=== PATIENT | female | born 1950 | race Caucasian/White ===

== ENCOUNTER → 2025-01-22 11:24 | Outpatient (BNVA) | payer MEDICARE, OTHER, SELFPAY | PROVIDERS: Visit Provider Student in an Organized Health Care Education/Training Program | DX: Z12.11 Encounter for screening for malignant neoplasm of colon (principal) | CPT/HCPCS: 99024; 99204 ==

== ENCOUNTER 2025-02-03 10:27 | Outpatient (CLI) | payer MEDICARE, OTHER, SELFPAY ==
--- NOTE | 2025-02-03 10:32 | MM_ITS ---
WS: [id number] BILATERAL 3D TOMOSYNTHESIS DIGITAL SCREENING MAMMOGRAPHY WITH CAD CLINICAL INFORMATION: SCREENING HISTORY: Screening mammogram. No current complaints. COMPARISON: None available TECHNIQUE: Bilateral CC and MLO views. FINDINGS: History of breast reduction Scattered fibroglandular densities bilaterally. No suspicious focal mass, asymmetry, calcifications, or architectural distortion. No evidence of malignancy. Bilateral changes of breast reduction. Dystrophic calcifications LEFT breast with fat necrosis likely due to breast reduction. Lucent centered calcification RIGHT breast. MM/MM [facility] tomosynthesis 71055 IMPRESSION: DENSITY: There are scattered areas of fibroglandular density. BI-RADS: 2 - Benign. FOLLOW UP: 1 Year Follow-up Recommend return to annual screening mammography.
== END 2025-02-03 10:28 | disposition home or self-care (01) ==
LOC: RAD 10:28
PROVIDERS: PCP Nurse Practitioner Family; Visit Provider Nurse Practitioner Family
DX: Z12.31 Encounter for screening mammogram for malignant neoplasm of breast (principal)
CPT/HCPCS: 77063; 77067

== ENCOUNTER 2025-03-03 08:42 | Day surgery (SDC) | payer MEDICARE, OTHER, SELFPAY ==
[2025-03-03 09:00] VITALS: BMI 32.4
[2025-03-03 09:04] VITALS: BP 125/85; PULSE 83; RESP 20; TEMP 36.1; O2SAT 96
--- NOTE | 2025-03-03 09:25 | ANES.PREANE2 ---
Pre-Anesthetic Assessment Height/Weight: Height 1.63 m Weight 85.729 kg Temp Pulse Resp BP Pulse Ox O2 Del Method 97 F L 83 20 H 125/85 96 Room Air 03/03/25 09:04 03/03/25 09:04 03/03/25 09:04 03/03/25 09:04 03/03/25 09:04 03/03/25 09:04 Preop Diagnosis: Screening Operation Date: 03/03/25 10:30 Proposed Procedures p Colonoscopy 14572 G0105 Z12.11(Not Applicable) - Chris Rich MD Was Beta Kaye taken within 24 hours: N/A Was Clonidine taken within 24 hours: N/A Last intake: Intake Last Liquid Date 03/02/25 Last Liquid Time 20:00 Last Solid Date 03/01/25 Last Solid Time 18:00 Social No alcohol and No tobacco Exam alert, oriented x 3, clear to auscultation bilaterally and regular rate & rhythm Airway Submandibular: within normal limits Cervical ROM: within normal limits Mallampati: Class II Dentition: full History/ROS No significant history except as noted and No significant complaints Pulmonary None reported CV/HEM Hypertension None reported Hepatic None reported GI None reported Metabolic None reported Musc/skel Osteoarthritis/DJD Neuropsych None reported Anesthetic Plan ASA status: 2 Anesthesia: Anesthesia Evaluation and MAC Risk of > 500 ml blood loss (7ml/kg in children): No Medications/Allergies Home Medications ?Medication ?Instructions ?Recorded ?Confirmed ?Last Taken ?Type cholecalciferol (vitamin D3) 50 50 mcg PO DAILY 01/22/25 03/03/25 03/02/25 History mcg (2,000 unit) capsule levothyroxine 50 mcg tablet 50 mcg PO QDAY 01/22/25 03/03/25 03/02/25 History lisinopril 10 1 tab PO QDAY 01/22/25 03/03/25 03/02/25 History mg-hydrochlorothiazide 12.5 mg tablet lovastatin 40 mg tablet 40 mg PO QDAY 01/22/25 03/03/25 03/02/25 History potassium chloride 10 mEq 10 meq PO QDAY 01/22/25 03/03/25 03/02/25 History capsule,extended release sumatriptan succinate 100 mg tablet 100 mg PO ONCE PRN Headache 01/22/25 03/03/25 1 Month Ago History ~01/31/25 venlafaxine 150 mg 150 mg PO QAM 01/22/25 03/03/25 03/02/25 History capsule,extended release 24 hr zinc gluconate 50 mg tablet 50 mg PO DAILY 01/22/25 03/03/25 03/02/25 History Allergies Allergy/AdvReac Type Severity Reaction Status Date / Time No Known Allergies Allergy Verified 03/03/25 09:01 Current Medications Generic Name Dose Route Start Last Admin Trade Name Freq PRN Reason Stop Dose Admin Sodium Chloride 1,000 mls @ 15 mls/hr 03/03/25 08:50 03/03/25 09:13 Sodium Chloride 0.9% IV 03/04/25 08:49 15 mls/hr .Q24H PRN Administration COLONOSCOPY FLUIDS PFSH Anesthesia Family History (Updated 01/22/25 @ 11:31 by DEEPAK Mancuso) Father Migraines Diabetes Mother Hypertension Thyroid disease Social History Smoking and tobacco/nicotine status: never used tobacco/nicotine
--- NOTE | 2025-03-03 09:39 | W.PM.OPSFHP ---
Same Day Surgery H&P Indication for Procedure/HPI DATE OF PROCEDURE: March 03, 2025 CHIEF COMPLAINT/INDICATIONFOR SURGICAL PROCEDURE: screening colonoscopy PREOP DIAGNOSIS: screening colonoscopy PLANNED PROCEDURE: Operation Date: 03/03/25 10:30 Proposed Procedures p Colonoscopy 10754 G0105 Z12.11(Not Applicable) - Chris Rich MD Medications/Allergies* Home Medications ?Medication ?Instructions ?Recorded ?Confirmed ?Type cholecalciferol (vitamin D3) 50 50 mcg PO DAILY 01/22/25 03/03/25 History mcg (2,000 unit) capsule levothyroxine 50 mcg tablet 50 mcg PO QDAY 01/22/25 03/03/25 History lisinopril 10 1 tab PO QDAY 01/22/25 03/03/25 History mg-hydrochlorothiazide 12.5 mg tablet lovastatin 40 mg tablet 40 mg PO QDAY 01/22/25 03/03/25 History potassium chloride 10 mEq 10 meq PO QDAY 01/22/25 03/03/25 History capsule,extended release sumatriptan succinate 100 mg tablet 100 mg PO ONCE PRN Headache 01/22/25 03/03/25 History venlafaxine 150 mg 150 mg PO QAM 01/22/25 03/03/25 History capsule,extended release 24 hr zinc gluconate 50 mg tablet 50 mg PO DAILY 01/22/25 03/03/25 History Allergies/Adverse Reactions Allergy/AdvReac Type Severity Reaction Status Date / Time No Known Allergies Allergy Verified 03/03/25 09:01 Current Medications: Generic Name Dose Route Start Last Admin Trade Name Freq PRN Reason Stop Dose Admin Sodium Chloride 1,000 mls @ 15 mls/hr 03/03/25 08:50 03/03/25 09:13 Sodium Chloride 0.9% IV 03/04/25 08:49 15 mls/hr .Q24H PRN Administration COLONOSCOPY FLUIDS Pertinent History/Comorbid Conditions* Family History (Updated 01/22/25 @ 11:31 by DEEPAK Mancuso) Diabetes Father Migraines Father Hypertension Mother Thyroid disease Mother Social History Smoking and tobacco/nicotine status: never used tobacco/nicotine Pertinent Exam Findings alert, oriented x 3, clear to auscultation bilaterally, regular rate & rhythm and procedure specific exam findings abdomen soft, nt, nd Recommendations Risks and benefits of procedure reviewed and Patient/family agree to proceed Surgery/Procedure today Coding Level of Care Code Acute Code for g Fwd
[2025-03-03 10:04] VITALS: BP 132/71; PULSE 82; RESP 20; TEMP 36.1; O2SAT 92
[2025-03-03 10:14] VITALS: BP 127/65; PULSE 68; RESP 18; TEMP 36.1; O2SAT 92
[2025-03-03 10:20] VITALS: BP 131/83; PULSE 69; RESP 18; O2SAT 96
--- NOTE | 2025-03-03 10:55 | ANE.PACU2 ---
Inpatient post-anesthesia follow up: Airway intact: Yes Vital signs: Temperature 97.0 F Pulse Rate 69 Respiratory Rate 18 Blood Pressure 131/83 Pulse Oximetry 96 Oxygen Delivery Me thod Room Air Oxygen Flow Rate 2 Fraction of Inspir ed Oxygen Hydration adequate: Yes Nausea and vomiting: No Pain level: 1 Mental status: Baseline
== END 2025-03-03 10:58 | disposition home or self-care (01) ==
PROVIDERS: PCP Nurse Practitioner Family; Visit Provider Student in an Organized Health Care Education/Training Program
PROC: 0DJD8ZZ Inspection of Lower Intestinal Tract, Via Natural or Artificial Opening Endoscopic (ICD-10-PCS; CPT 45378; principal; 2025-03-03 10:30)
DX: Z12.11 Encounter for screening for malignant neoplasm of colon (principal); K57.30 Diverticulosis of large intestine without perforation or abscess without bleeding; K62.1 Rectal polyp; I10 Essential (primary) hypertension
CPT/HCPCS: 45385; 88305; J2704; J7030

== ENCOUNTER → 2025-03-20 08:14 | Outpatient (BNVA) | payer MEDICARE, OTHER, SELFPAY | PROVIDERS: PCP Nurse Practitioner Family; Visit Provider Orthopaedic Surgery | DX: M17.11 Unilateral primary osteoarthritis, right knee (principal); M25.761 Osteophyte, right knee; G89.29 Other chronic pain | CPT/HCPCS: 73560; 73565; 99204 ==

== ENCOUNTER → 2025-03-23 08:51 | Outpatient (BNVA) | payer MEDICARE, OTHER, SELFPAY | PROVIDERS: PCP Nurse Practitioner Family; Visit Provider Student in an Organized Health Care Education/Training Program | DX: Z09 Encounter for follow-up examination after completed treatment for conditions other than malignant neoplasm (principal) | CPT/HCPCS: 99213 ==

== ENCOUNTER 2025-04-15 11:23 | Observation (INO) | payer MEDICARE, OTHER, SELFPAY ==
[2025-04-15] VITALS (29 sets, daily range): BP systolic 89–131; BP diastolic 61–108; PULSE 63–101; RESP 9–22; TEMP 36–37.1; O2SAT 91–100; BMI 31.4
--- NOTE | 2025-04-15 06:38 | W.PM.OPSUD ---
Surgery/Procedure H&P Update DATE OF PROCEDURE: April 15, 2025 DATE H&P PERFORMED: 03/20/25 H&P UPDATE INFORMATION: I have reviewed H&P completed within last 30 days, I have examined patient prior to procedure and No changes to prior documentation PREOP DIAGNOSIS: End-stage arthritis right knee PLANNED PROCEDURE: Operation Date: 04/15/25 07:00 Proposed Procedures p RIGHT Total Knee Arthroplasty 36372(Right) - Eyad Nicolas MD
--- NOTE | 2025-04-15 06:39 | ECG_ITS ---
[facility]: 2025-[facility]15 Pat Name: Kiley Arenas Department: Room: Gender: Female Supervisor Mill: : 1950 Requested By: Ernestina Fry Order Number: [id number] Chad MD: Dandy Vivar M.D. Measurements Intervals [place] Rate: 76 P: 42 RI: 161 QRS: -8 QRSD: 87 T: 47 QT: 385 QTc: 434 Interpretive Statements SINUS RHYTHM WITH OCCASIONAL ECTOPIC PREMATURE COMPLEXES No previous ECG available for comparison Electronically Signed On 04-15-2025 16:48:26 CDT by Dandy Vivar M.D. [email or web address]
[2025-04-15 06:48] LABS: Hematocrit 42.2 % (36-47); Hemoglobin 14.30 g/dL (11.27-16.99); Mean Corpuscular HGB Conc 33.9 g/dL (30-55); Mean Corpuscular Hemoglobin 30.5 pg (27-33); Mean Corpuscular Volume 90.0 fl (85-98); Nucleated Red Blood Cells % 0 %; Platelet Count 258 10^3/cmm (157-399); Red Blood Count 4.69 10^6/uL (3.85-5.65); White Blood Count 7.19 10^3/uL (3.29-11.43)
[2025-04-15 07:00] LABS: Anion Gap 18.4 (5-19); Blood Urea Nitrogen 15 mg/dL (8-23); Calcium 9.0 mg/dL (8.5-10.5); Carbon Dioxide 24 mmol/L (22-29); Chloride 102 mmol/L (98-107); Creatinine Clr Calc Pharmacy 67.7187; Glucose 102 mg/dL (65-115); Osmolality Calculated 293 mOsm/kg (285-295); Potassium 3.4 mmol/L (3.5-5.1); Sodium 141 mmol/L (136-145)
--- NOTE | 2025-04-15 07:12 | ANES.PREANE2 ---
Pre-Anesthetic Assessment Height/Weight: Height 1.65 m Weight 85.729 kg Temp Pulse Resp BP Pulse Ox O2 Del Method 96.8 F L 85 18 131/108 94 Room Air 04/15/25 06:23 04/15/25 06:23 04/15/25 06:23 04/15/25 06:23 04/15/25 06:23 04/15/25 06:23 Preop Diagnosis: End-stage arthritis right knee Operation Date: 04/15/25 07:00 Proposed Procedures p RIGHT Total Knee Arthroplasty 91369(Right) - Eyad Nicolas MD Familial anesthetic complications: None Was Beta Kaye taken within 24 hours: N/A Was Clonidine taken within 24 hours: N/A Last intake: Intake Last Liquid Date 04/14/25 Last Liquid Time 21:00 Last Solid Date 04/14/25 Last Solid Time 19:00 Social No alcohol and No tobacco Exam alert, oriented x 3, clear to auscultation bilaterally and regular rate & rhythm Airway Mallampati: Class I CV/HEM Hypertension Anesthetic Plan Anesthesia: Regional (specify below) Risk of > 500 ml blood loss (7ml/kg in children): No Medications/Allergies Home Medications ?Medication ?Instructions ?Recorded ?Confirmed ?Last Taken ?Type cholecalciferol (vitamin D3) 50 50 mcg PO DAILY 01/22/25 04/14/25 04/14/25 History mcg (2,000 unit) capsule levothyroxine 50 mcg tablet 50 mcg PO QDAY 01/22/25 04/15/25 04/15/25 History lisinopril 10 1 tab PO BEDTIME 01/22/25 04/14/25 04/14/25 History mg-hydrochlorothiazide 12.5 mg tablet lovastatin 40 mg tablet 40 mg PO BEDTIME 01/22/25 04/14/25 04/14/25 History potassium chloride 10 mEq 10 meq PO QDAY 01/22/25 04/14/25 04/14/25 History capsule,extended release sumatriptan succinate 100 mg tablet 100 mg PO ONCE PRN Headache 01/22/25 04/14/25 1 Month Ago History ~01/31/25 venlafaxine 150 mg 150 mg PO QAM 01/22/25 04/14/25 04/14/25 History capsule,extended release 24 hr zinc gluconate 50 mg tablet 50 mg PO DAILY 01/22/25 04/14/25 04/14/25 History Allergies Allergy/AdvReac Type Severity Reaction Status Date / Time No Known Allergies Allergy Verified 04/14/25 16:16 [facility] Anesthesia Family History Father Migraines Diabetes Mother Hypertension Thyroid disease Social History Smoking and tobacco/nicotine status: never used tobacco/nicotine Data Anesthesia 04/15/25 06:32 04/15/25 06:32 Short CBC 04/15/25 Range/Units 06:32 WBC 7.19 (3.29-11.43) 10^3/uL Hgb 14.30 (11.27-16.99) g/dL Hct 42.2 (36-47) % MCV 90.0 (85-98) fl Plt Count 258 (157-399) 10^3/cmm Neut % (Auto) 46.4 % Neut # (Auto) 3.34 (1.8-7.7) 10^3/uL BMP 04/15/25 06:32 Sodium 141 Potassium 3.4 L Chloride 102 Carbon Dioxide 24 BUN 15 Creatinine 0.8 Glucose 102 Calcium 9.0 Anesthesia Procedures Nerve Block Nerve Block 1: Main Anesthesia: spinal anesthesia block Time Out Performed: Yes Consent: requested by attending/covering physician, from patient, from other, risks and benefits reviewed and patient agrees to proceed Nerve block location: adductor canal (R) Anesthesia monitors applied: pulse oximetry, EKG, BP cuff and oxygen Nerve block position: supine Anesthetic Used: ropivicaine 0.5% (30 ml) and with decadron (4 mg) Ultrasound used to: recognize landmarks and visualize and ID femerol nerve Nerve Stimulator Used?: No Interscalene/Femoral BLK: 4 stimuplex 21 g needle used for position and inplane approach, visualize local anesthetic spread and no vascular puncture identified Injection: neg aspiration of heme Patient Tolerated Procedure: well Complications: none
[2025-04-15] MEDS: ceFAZolin 2,000 mg SDV 2000 MG IVP ×3 (07:14→23:01)
[2025-04-15] MEDS: tranexamic acid 1,000 mg/10mL SDV 1000 MG IV (07:50)
--- NOTE | 2025-04-15 09:00 | XR_ITS ---
WS: [id number] XR knee RT 1-2V 77310 REASON FOR EXAM: Total knee arthroplasty on the right FINDINGS: Total right knee arthroplasty. Components of the arthroplasty are intact and in proper position and alignment. No focal bone abnormality. XR/XR knee RT 1-2V 15563 IMPRESSION: Total right knee arthroplasty without abnormality.
--- NOTE | 2025-04-15 09:08 | P.OP_ITS ---
Operative Report Date of procedure: April 15, 2025 Surgeon: Eyad Nicolas MD Procedure: Preoperative diagnosis: End-stage degenerative joint disease right knee Postoperative diagnosis: Same Procedure: Right total knee arthroplasty Surgeon: Eyad Nicolas MD Manager Animation: CRUZ Butcher's assistance was necessary for positioning the patient, assistance during the procedure, wound closure, dressing placement Anesthesia: General EBL: 50 cc Tourniquet time: 38 minutes at 250 mmHg Indications: Kiley is a 74-year-old white female who was previously had a left total knee arthroplasty by another surgeon several years back. She has done very well with this. She eventually presented to my orthopedic clinic with complaints of pain and discomfort in her right knee similar to that in her left prior to her total knee arthroplasty. We attempted conservative measures including anti-inflammatory medication therapies and corticosteroid injections. However this did not help. Subsequently she was offered a total knee arthroplasty. On x-rays she had valgus deformity of her knee with significant wear lateral compartment. There is also arthritic changes of the medial compartment and posterior patella. All risk benefits treatment alternatives were discussed with her and she is agreeable to proceed with surgical intervention Procedure: After obtaining her consent patient taken the operating room and ther e was attempt to perform a spinal anesthetic which failed. Patient was then placed to sleep with general anesthetic. Once good anesthesia was achieved pneumatic cuffs placed on proximal right thigh and right leg was prepped and draped usual fashion. After surgical timeout and gravity exsanguination pneumatic cuff is inflated 250 mmHg. Knee was flexed at 90 degrees and held of foot holding device. Longitudinal incision made from superior pole the patella down the tibial tubercle sharp dissection to get him down to subcutaneous tissues and electrocautery used for hemostasis. Knee was opened up along medial parapatellar incision line. Joint line was exposed. Soft tissue was sharply debrided including fat pad and ACL. Anterior horns of menisci was also removed. Medial capsule of the proximal tibia was stripped to expose the knee further. At this point leg was put up to full extension patella was everted. Excess tissue was dissected around the periphery of this. Rongeur was used to remove osteophytes of the patella. Patella was then reamed down to 14 mm thickness. Knee was flexed back to 90 degrees and patella placed in lateral gutter. Appropriate retractors were placed including PCL retractor. Small osteotome driven anterior to the PCL to protect during tibial cut. Tibial cutting guide was then positioned on the anterior tibia with appropriate posterior slope. 2 mm cut was set off the most affected side that being the lateral. Sagittal saw was then used to make tibial cut. Once Was complete box cut was made around the insertion of the PCL with a small osteotome and tibial cut was removed piecemeal. PCL retractor was removed and drill hole placed in the distal femur just anterior to the intercondylar notch. Guide stuart was placed up to interventionally canal distal cutting block was positioned on the distal femur and pinned in place. Once checking with the sawblade it was found that there was an adequate cut laterally and therefore a +2 cut was then performed. Distal femur sized a size 6 femoral cutting block and drill holes were placed through this guide. Cutting block was placed on the distal femur and anterior posterior and chamfer cuts were made without any difficulties. PCL retractor was replaced again and all soft tissue was sharply debrided from the joint line. Proximal tibia was sized to a size EE tibial tray and pinned in place. Trial 10 mm spacer was placed on this. Subsequently a size 6 femoral trial component was then placed and impacted on the distal femur. Excess osteophytes removed the osteotome at this point. Knee was put through range of motion and found to have full extension. Varus valgus stressing however demonstrated instability medially. In a stepwise fashion increasing sizes of tibial spacer was used up until a size 14 tibial spacer finding adequate full extension and stability medial laterally. Patella was then sized a size 29 patellar button appropriate drill holes placed trial component placed and used with range of motion found to be stable with good tracking the patella. At this point trial components removed after drill holes were placed in the distal femoral trial for future post of the permanent component. Once all components were removed knee was washed with copious amounts of pulse Avage irrigation. Bone graft was placed up the endometrial canal drill hole of the distal femur. Once cleaned and dried up appropriate drill holes were placed through the tibial tray. Attire was placed on this and the centralized drill holes placed and then a punch was placed for the positioning of the tibial tray post. Knee was washed again. At this point permanent tibial plate was placed and impacted. Femoral component was placed and impacted. Trial 14 tibial spacer was placed and found to have adequate positioning and stability. Full range of motion achieved. Size 29 patellar button was impacted in the posterior patella. At this point a permanent size 14 polyethylene spacer was placed on the tibia and locked in place. Knee again was put through range of motion found to be stable. Wound was washed again. Knee was placed on a knee bump for slight flexion. Extensor mechanism repaired #1 Vicryl [id number] sutures. Subcutaneous was reapproximated 0 Vicryl interrupted sutures. Skin was closed with skin fabian. Wounds are clean and dry dressed Xeroform gauze sterile gauze dressing ABDs sterile Webril and an Richard wrap for compression. Patient was awakened transferred cover in stable addition
[2025-04-15] MEDS: fentaNYL 50 mcg/mL INJ 2mL IVP (09:32)
--- NOTE | 2025-04-15 13:01 | ANE.PACU2 ---
Inpatient post-anesthesia follow up: Airway intact: Yes Vital signs: Temperature 97.3 F Pulse Rate 63 Respiratory Rate 16 Blood Pressure 100/65 Pulse Oximetry 95 Oxygen Delivery Me thod Room Air Oxygen Flow Rate 10 Fraction of Inspir ed Oxygen Hydration adequate: Yes Nausea and vomiting: No Pain level: 1 Mental status: Baseline
[2025-04-15] MEDS: HYDROcodone-acetaminophen 5-325 mg Tablet 1 TAB PO (13:05)
--- NOTE | 2025-04-15 16:01 | P.PN_ITS ---
Subjective 2 Subjective: Patient had right total knee arthroplasty earlier today. Now in her hospital bed for the evening. Doing quite well Medications: Reviewed: Yes Vitals/I&O/Wt Last Vital Signs Temp 97.3 F L 04/15/25 12:04 Pulse 67 04/15/25 13:25 Resp 16 04/15/25 13:25 BP 120/73 04/15/25 13:25 Pulse Ox 95 04/15/25 13:25 O2 Del Method Room Air 04/15/25 13:25 O2 Flow Rate 10 04/15/25 09:15 04/15/25 04/15/25 04/15/25 06:59 14:59 22:59 Intake Total 50 / 50 Output Total 45 / 45 Balance 5 / 5 Weight last 48 hrs Weight 189 lb Physical Exam 2 Narrative: On exam at this time patient is resting comfortably in bed. She does have her knee elevated somewhat it with ice on it. She states the pain is getting better. Quite happy with the procedure Urinary Catheter Management: Cheek: Cath Placed During This Visit: yes Urinary Catheter Date of Insertion: 04/15/25 Urinary Catheter Time of Insertion: 07:42 Data 04/15/25 06:32 04/15/25 06:32 A&P Assessment and plan 1. Status post total right knee replacement: Status post right total knee arthroplasty today. Patient is comfortable in her hospital bed. Tolerated procedure well. Neurovasc intact distally. Dressings are clear. Plan: Plan at this time is to control her pain this evening and continue on with physical therapy tomorrow to get her up and ambulatory. Possible discharge tomorrow afternoon. PDMP PDMP Reviewed: Not Reviewed Attestations 2 Medical Necessity Statement*: Patient in need of pain control secondary to total knee arthroplasty. Coding Level of Care Code Acute Code for Chg Fwd Diagnoses Status post total right knee replacement Z96.651 Laterality: right
[2025-04-15] MEDS: mupirocin oint 22 gm 1 APPLIC NASAL (17:41)
[2025-04-15] MEDS: chlorhexidine gluconate 0.12% Btl 473 mL 30 ML MUCOUS MEM ×2 (17:41→23:02)
[2025-04-15] MEDS: sennosides-docusate Tablet 2 TAB PO (17:41)
[2025-04-15] MEDS: HYDROcodone-acetaminophen 5-325 mg Tablet PO ×2 (17:42→23:01)
[2025-04-15] MEDS: ATORVASTATIN 20 MG TABLET PO (21:48)
[2025-04-16 02:46] VITALS: RESP 15
[2025-04-16] MEDS: morphine 4 mg/mL SDV 1 mL IVP (02:46)
[2025-04-16 05:00] VITALS: BP 111/64; PULSE 76; RESP 16; TEMP 36.7
[2025-04-16] MEDS: sennosides-docusate Tablet 2 TAB PO (05:10)
[2025-04-16] MEDS: multivitamin therapeutic Tablet 1 TAB PO (05:11)
[2025-04-16] MEDS: venlafaxine ER (24HR) 150 mg Capsule PO (05:12)
[2025-04-16] MEDS: chlorhexidine gluconate 0.12% Btl 473 mL 30 ML MUCOUS MEM ×2 (05:14→10:27)
[2025-04-16] MEDS: mupirocin oint 22 gm 1 APPLIC NASAL (05:16)
[2025-04-16 05:50] LABS: Hematocrit 36.0 % (36-47); Hemoglobin 11.60 g/dL (11.27-16.99); Mean Corpuscular HGB Conc 32.2 g/dL (30-55); Mean Corpuscular Hemoglobin 29.9 pg (27-33); Mean Corpuscular Volume 92.8 fl (85-98); Nucleated Red Blood Cells % 0 %; Platelet Count 201 10^3/cmm (157-399); Red Blood Count 3.88 10^6/uL (3.85-5.65); White Blood Count 13.19 10^3/uL (3.29-11.43)
[2025-04-16 06:11] LABS: Anion Gap 17.8 (5-19); Blood Urea Nitrogen 16 mg/dL (8-23); Calcium 8.5 mg/dL (8.5-10.5); Carbon Dioxide 24 mmol/L (22-29); Chloride 105 mmol/L (98-107); Creatinine Clr Calc Pharmacy 67.7187; Glucose 131 mg/dL (65-115); Osmolality Calculated 299 mOsm/kg (285-295); Potassium 3.8 mmol/L (3.5-5.1); Sodium 143 mmol/L (136-145)
[2025-04-16] MEDS: ceFAZolin 2,000 mg SDV 2000 MG IVP (07:14)
[2025-04-16] MEDS: HYDROcodone-acetaminophen 5-325 mg Tablet PO ×3 (07:33→15:27)
[2025-04-16 10:04] VITALS: BP 112/67; PULSE 82; RESP 16; TEMP 36.8; O2SAT 96
--- NOTE | 2025-04-16 15:42 | P.DS_ITS ---
Discharge Providers Date of Admission: 04/15/25 11:23 Date of Discharge: April 16, 2025 Attending Provider at Admission: Eyad Nicolas MD Attending Provider at Discharge: Eyad Nicolas MD Primary Care Provider: CRUZ Delgado Diagnoses at Discharge Discharge Diagnosis 1. Status post total right knee replacement: Details from hospital stay: Patient was admitted on 04/15/2025 for right total knee arthroplasty. She tolerated this procedure well. She was held overnight for pain control as well as physical therapy. By postop day #1 she is doing quite well and had pain under control that she can be discharged home Reason for Visit Reason for Visit: M25.561 Physical Exam Narrative: Patient's dressing had some old bloody drainage appearing to be postop drainage. No concerns about continued bleeding. Patient is neurovasc intact distally of the right leg Urinary Catheter Management: Cheek: Cath Placed During This Visit: yes, but has since been removed by the nurse Reason for Continuing Indwelling Catheter: Decision to DC Catheter Urinary Catheter Date of Insertion: 04/15/25 Urinary Catheter Time of Insertion: 07:42 Date Urinary Catheter Removed: 04/16/25 Time Urinary Catheter Discontinued: 05:00 Discharge Data Studies Completed and Pending Completed Studies During Hospitalization Category Date Time Status XR knee RT 1-2V 08916 Routine Exams 04/15/25 09:00 Completed Radiology Impressions Knee X-Ray 04/15/25 09:00 IMPRESSION: Total right knee arthroplasty without abnormality. Laboratory Results WBC 13.19 10^3/uL (3.29-11.43) H 04/16/25 05:44 RBC 3.88 10^6/uL (3.85-5.65) 04/16/25 05:44 Hgb 11.60 g/dL (11.27-16.99) 04/16/25 05:44 Hct 36.0 % (36-47) 04/16/25 05:44 MCV 92.8 fl (85-98) 04/16/25 05:44 MCH 29.9 pg (27-33) 04/16/25 05:44 MCHC 32.2 g/dL (30-55) D 04/16/25 05:44 RDW 14.3 % (12.1-15.1) 04/16/25 05:44 Plt Count 201 10^3/cmm (157-399) 04/16/25 05:44 MPV 10.5 fL (7.4-10.4) H 04/16/25 05:44 Neut % (Auto) 80.2 % 04/16/25 05:44 Lymph % (Auto) 11.0 % 04/16/25 05:44 Liberty % (Auto) 8.4 % 04/16/25 05:44 Eos % (Auto) 0.0 % 04/16/25 05:44 Baso % (Auto) 0.1 % 04/16/25 05:44 Neut # (Auto) 10.58 10^3/uL (1.8-7.7) H 04/16/25 05:44 Lymph # (Auto) 1.5 10^3/uL (0.8-4.8) 04/16/25 05:44 Liberty # (Auto) 1.1 10^3/uL (0.2-0.9) H 04/16/25 05:44 Eos # (Auto) 0.0 10^3/uL (0.0-0.8) 04/16/25 05:44 Baso # (Auto) 0.0 10^3/uL (0.0-0.1) 04/16/25 05:44 Nucleated RBC % (auto) 0 % 04/16/25 05:44 Nucleated RBCs # 0.0 /100WBC 04/16/25 05:44 Sodium 143 mmol/L (136-145) 04/16/25 05:44 Potassium 3.8 mmol/L (3.5-5.1) 04/16/25 05:44 Chloride 105 mmol/L (98-107) 04/16/25 05:44 Carbon Dioxide 24 mmol/L (22-29) 04/16/25 05:44 Anion Gap 17.8 (5-19) 04/16/25 05:44 BUN 16 mg/dL (8-23) 04/16/25 05:44 Creatinine 0.7 mg/dL (0.5-0.9) 04/16/25 05:44 GFR Calculation Not Reportable 04/16/25 05:44 Glucose 131 mg/dL (65-115) H 04/16/25 05:44 Calculated Osmolality 299 mOsm/kg (285-295) H 04/16/25 05:44 Calcium 8.5 mg/dL (8.5-10.5) 04/16/25 05:44 Vitals Last Vital Signs Temp 98.3 F 04/16/25 10:04 Pulse 82 04/16/25 10:04 Resp 16 04/16/25 10:04 BP 112/67 04/16/25 10:04 Pulse Ox 96 04/16/25 10:04 O2 Del Method Room Air 04/16/25 10:04 O2 Flow Rate 10 04/15/25 09:15 Discharge Plan Discharge Patient Disposition: Home Health Service Condition: Stable Prescriptions: New hydrocodone-acetaminophen 5-325 mg tablet 1 tab PO Q6H PRN (Reason: pain) Qty: 30 0RF Continued potassium chloride 10 mEq capsule, extended release 10 meq PO QDAY sumatriptan succinate 100 mg tablet 100 mg PO ONCE PRN (Reason: Headache) lovastatin 40 mg tablet 40 mg PO BEDTIME venlafaxine 150 mg capsule,extended release 24hr 150 mg PO QAM levothyroxine 50 mcg tablet 50 mcg PO QDAY zinc gluconate 50 mg tablet 50 mg PO DAILY lisinopril-hydrochlorothiazide 10-12.5 mg tablet 1 tab PO BEDTIME cholecalciferol (vitamin D3) 50 mcg (2,000 unit) capsule 50 mcg PO DAILY Referrals: [facility] [Outside] Eyad Nicolas MD [Physician, Orthopedics] - 05/05/25 9:15 am Referral Note: post op follow up Discharge Diet: Advance as tolerated Discharge Activity: Increase activity as tolerated Patient Instructions: Acute Wound Care (DC), Precautions after Total Joint Replacement Surgery (DC), Total Knee Replacement (DC), OB Discharge Report, OB Food/Drug Interaction Guide, Opioid Safety, Post Anesthesia Care, Patient Portal & José Antonio Instructions Activity Restrictions/Additional Instructions: Leave dressing in place until follow-up Walker ambulation weightbearing as tolerated Ice and elevate is much as possible Call with any concerns Discharge Attestations Time Spent in Discharge Care*: less than 30 min Quality Metrics Clinical Quality Measures [ No reported AMI, CVA or VTE this stay] Coding Level of Care Code Acute Code for Chg Fwd Diagnoses Status post total right knee replacement Z96.651 Laterality: right
[2025-04-16 16:11] VITALS: BP 102/56; PULSE 72; RESP 17; TEMP 36.9; O2SAT 97
[2025-04-16 16:28] VITALS: BP 102/56; PULSE 72; RESP 17; TEMP 36.9; O2SAT 97
== END 2025-04-16 16:28 | disposition home health service (06) ==
LOC: OBGYN 11:25
PROVIDERS: Anesthesiology; Admitting Provider Orthopaedic Surgery; PCP Nurse Practitioner Family; Visit Provider Orthopaedic Surgery
PROC: (CPT 27447; principal; 2025-04-15 07:00)
DX: M17.11 Unilateral primary osteoarthritis, right knee (principal); I10 Essential (primary) hypertension
CPT/HCPCS: 27447; 36415; 51702; 73560; 80048; 85025; 93005; 97110; 97116; 97161; 97165; A4216; C1776; G0378; J0131; J0690; J1100; J1171; J1885; J2270; J2371; J2405; J2704; J2795; J3010; J7030; J9999

== ENCOUNTER → 2025-05-05 09:08 | Outpatient (BNVA) | payer MEDICARE, OTHER, SELFPAY | PROVIDERS: PCP Nurse Practitioner Family; Visit Provider Orthopaedic Surgery | DX: Z98.890 Other specified postprocedural states (principal); Z96.651 Presence of right artificial knee joint | CPT/HCPCS: 73560; 73565; 99024 ==